=== PATIENT | male | born 1995 | race Hispanic/Latino ===

== ENCOUNTER 2017-06-26 23:01 | Emergency (ER) | payer SELFPAY ==
[~2017-06-26] VITALS: Ht 170.2 cm; Wt 69.4 kg
[2017-06-27 02:02] VITALS: BP 118/67
== END 2017-06-27 02:00 | disposition home or self-care (01) ==
LOC: FSED 23:01
DX: R07.89 Other chest pain (principal)
CPT/HCPCS: 71046; 80053; 80307; 82553; 84484; 85025; 93005; 99284

== ENCOUNTER 2019-08-19 14:43 | Emergency (ER) | payer OTHER ==
[~2019-08-19] VITALS: Ht 170.2 cm; Wt 73.9 kg
[2019-08-19] MEDS ORDERED: AZITHROMYCIN500 MG PO (16:25)
[2019-08-19] MEDS ORDERED: PREDNISONE20 MG PO (16:25)
[2019-08-19] MEDS ORDERED: PROAIR HFA INH8.5 GM PO (16:25)
--- NOTE | 2019-08-19 16:25 | Emergency Department Note ---
History of Present Illnes History of Present Illness Chief Complaint: pt wants to be tested for covid, fever x 1 day History of Present Illness This is a 23 year old male. was doing well until [address], bodyaches,cough, wheezing then fever. Historian: Patient History limited by: condition of the patient (normal) Onset (how long ago): day(s) (1) Location: n/a Quality: n/a Radiation: Denies non-radiation Severity: mild Onset quality: gradual Duration (how long): day(s) (1) Timing of current episode: intermittent Progression: waxing and waning Chronicity: new Context: Denies recent illness, Denies recent surgery, Denies recent immobilization, Denies recent travel, Denies trauma/injury, Denies new medications, Denies hx of DVT/PE, Denies non-compliance w/ medications Relieving factors: none Exacerbating factors: none Associated symptoms: Reports cough, Reports fever/chills; Denies shortness of breath Treatments prior to arrival: none Past Medical/Family History Physician Review I have reviewed the patient's past medical and family history. Any updates have been documented here. Past Medical History Recent Fever: No Clinical Suspicion of Infectio: No New/Unexplained Change in Ment: No Past Medical History: None Past Surgical History: None Social History Smoking Cessation: Never Smoker Counseling Performed: No Any Illegal Drug Use: No TB Exposure/Symptoms: No Physically hurt or threatened: No Family History Family history of heart diseas: No Other Any Pre-Existing Lines (PICC,: No Is patient up to date on immun: No Review of Systems Review of Systems Constitutional: Reports as per HPI EENTM: Reports as per HPI Cardiovascular: Reports no symptoms Respiratory: Reports as per HPI Gastrointestinal: Reports no symptoms Genitourinary: Reports no symptoms Musculoskeletal: Reports no symptoms Integumentary: Reports no symptoms Neurological: Reports no symptoms Psychological: Reports no symptoms Endocrine: Reports no symptoms Hematological/Lymphatic: Reports no symptoms Review of other systems: All other systems negative Physical Exam Related Data Allergies: Coded Allergies: No Known Allergies (Unverified , 08/19/19) Vital signs reviewed: Yes Physical Exam CONSTITUTIONAL Constitutional: Present well-developed, Present well-nourished HENT HENT: Present normocephalic, Present atraumatic, Present nose normal, Present erythema HENT L/R: Present left ext ear normal, Present right ext ear normal EYES Eyes: Reports PERRL, Reports conjunctivae normal NECK Neck: Present ROM normal, Present supple PULMONARY Pulmonary: Present effort normal, Present other (forced expiratory wheezes) CARDIOVASCULAR Cardiovascular: Present regular rhythm, Present heart sounds normal, Present capillary refill normal, Present normal rate GASTROINTESTINAL Abdominal: Present soft, Present nontender, Present bowel sounds normal GENITOURINARY Genitourinary: Present exam deferred SKIN Skin: Present warm, Present dry MUSCULOSKELETAL Musculoskeletal: Present ROM normal NEUROLOGICAL Neurological: Present alert, Present oriented x 3, Present no gross motor or sensory deficits PSYCHOLOGICAL Psychological: Present mood/affect normal, Present judgement normal Assessment & Plan Medical Decision Making MDM self quarantine. rx azithromycin, prednisone, albuterol inhaler. tylenol to control fever Assessment & Plan Final Impression: (1) Reactive airway disease (2) Acute bronchitis (3) Acute pharyngitis Depart Disposition: HOME, SELF-long-term Meds Active Scripts Azithromycin (AZITHROMYCIN) 500 Mg Tablet, 500 TAB PO DAILY, #5 Prov:DIMITRIS FALK 08/19/19 Prednisone (PREDNISONE) 20 Mg Tab, 60 MG PO DAILY, #15 TAB Prov:DIMITRIS FALK 08/19/19 Albuterol Sulf* (PROAIR HFA INHALER*) 8.5 Gm Inh, 2 INH PO Q4HR PRN for WHEEZING, #1 INH prn cough, wheezing shortness of breath Prov:DIMITRIS FALK 08/19/19 DIMITRIS FALK Aug 19, 2019 16:25
[2019-08-19 16:46] VITALS: BP 118/81
== END 2019-08-19 16:42 | disposition home or self-care (01) ==
LOC: FSED 14:43
DX: R50.9 Fever, unspecified (principal); R05 Cough; U07.1 COVID-19; J20.9 Acute bronchitis, unspecified; J02.9 Acute pharyngitis, unspecified; J45.909 Unspecified asthma, uncomplicated
CPT/HCPCS: 87635; 99282